=== PATIENT | female | born 1950 | race Two or more races ===

== ENCOUNTER 2017-02-14 17:08 | Emergency (ER) | payer OTHER ==
[~2017-02-14] VITALS: Ht 160 cm; Wt 99.8 kg
[2017-02-14 18:23] VITALS: BP 141/88
[2017-02-15] MEDS ORDERED: InsuLIN REG 1unit/0.01ml Soln (100units/ml) ONE (04:21)
== END 2017-02-14 20:45 | disposition home or self-care (01) ==
LOC: ER 17:18
DX: S20.219A Contusion of unspecified front wall of thorax, initial encounter (principal); S09.90XA Unspecified injury of head, initial encounter; R42 Dizziness and giddiness; V43.92XA Unspecified car occupant injured in collision with other type car in traffic accident, initial encounter; Y93.89 Activity, other specified; Y92.89 Other specified places as the place of occurrence of the external cause; Y99.8 Other external cause status
CPT/HCPCS: 70450; 71250; 93005